=== PATIENT | male | born 1965 | race Caucasian/White ===

== ENCOUNTER 2016-11-20 03:17 | Emergency (ER) | payer MEDICARE, MEDICAID ==
[~2016-11-20] VITALS: Ht 175.3 cm; Wt 81.0 kg
[~2016-11-20 03:17] MED LIST: CLON2TAB PO; CYM20 PO; OMEP20CA4 PO; QUET200T PO
[2016-11-20] MEDS ORDERED: QUETIAPINE FUMARATE 100MG TABLET PO SCH (04:00)
[2016-11-20] MEDS ORDERED: LORAZEPAM 1MG TABLET PO ONE (10:15)
[2016-11-20 11:18] VITALS: BP 133/86
== END 2016-11-20 11:19 | disposition home or self-care (01) ==
LOC: ER 03:19
DX: Z00.00 Encounter for general adult medical examination without abnormal findings (principal); F31.9 Bipolar disorder, unspecified; Z79.899 Other long term (current) drug therapy
CPT/HCPCS: 99283

== ENCOUNTER 2016-12-25 17:05 | Emergency (ER) | payer MEDICARE, OTHER ==
[~2016-12-25] VITALS: Ht 175.3 cm; Wt 82.0 kg
[2016-12-25 17:25] VITALS: BP 116/83
[2016-12-25] MEDS ORDERED: CLONAZEPAM 1MG TABLET PO ONE (18:00)
== END 2016-12-25 18:45 | disposition home or self-care (01) ==
LOC: ER 18:27
DX: F41.9 Anxiety disorder, unspecified (principal); F19.20 Other psychoactive substance dependence, uncomplicated; F31.9 Bipolar disorder, unspecified; Z79.899 Other long term (current) drug therapy
CPT/HCPCS: 99284